=== PATIENT | female | born 1970 | race Caucasian/White ===

== ENCOUNTER → 2017-12-08 | Emergency (ER) | payer OTHER ==
[~2017-12-08] VITALS: Ht 160 cm; Wt 77.1 kg
[~2017-12-08] MED LIST: NAPR500T14; SYNTHROID150 MCG
== END | disposition home or self-care (01) ==
LOC: ER 15:15
DX: J22 Unspecified acute lower respiratory infection (principal)

== ENCOUNTER → 2018-05-24 | Outpatient (CLI) | payer OTHER | END | disposition home or self-care (01) | LOC: NUCLEAR 10:50 | DX: C73 Malignant neoplasm of thyroid gland (principal); E89.0 Postprocedural hypothyroidism | CPT/HCPCS: 78018; 78020; A9528 ==

== ENCOUNTER 2018-07-17 13:07 | Emergency (ER) | payer OTHER ==
[~2018-07-17] VITALS: Ht 157.5 cm; Wt 78.5 kg
[2018-07-17] MEDS ORDERED: SINGULAIR10 MG (13:41)
== END 2018-07-17 17:37 | disposition home or self-care (01) ==
LOC: ER 13:07
DX: E16.2 Hypoglycemia, unspecified (principal); N39.0 Urinary tract infection, site not specified

== ENCOUNTER 2020-06-04 06:31 | Emergency (ER) | payer OTHER ==
[~2020-06-04] VITALS: Ht 157.5 cm; Wt 81.6 kg
[~2020-06-04 06:31] MED LIST changes: +SINGULAIR10 MG
[2020-06-04] MEDS ORDERED: INTESTINEX680 M2 PO (15:51)
[2020-06-04] MEDS ORDERED: KETO10TA2 PO (15:51)
[2020-06-04] MEDS ORDERED: MACRODANTIN100 M1 PO (15:51)
[2020-06-04] MEDS ORDERED: PEPCID AC20 MG PO (15:51)
== END 2020-06-04 16:20 | disposition home or self-care (01) ==
LOC: ER 06:31
DX: N39.0 Urinary tract infection, site not specified (principal); K63.89 Other specified diseases of intestine; R10.31 Right lower quadrant pain; R10.32 Left lower quadrant pain
CPT/HCPCS: 74177; Q9965

== ENCOUNTER 2020-07-19 08:45 | Inpatient (IN) | payer OTHER ==
[~2020-07-19] VITALS: Ht 157.5 cm; Wt 83.9 kg
[~2020-07-19 08:45] MED LIST changes: +INTESTINEX680 M2 PO; +KETO10TA2 PO; +MACRODANTIN100 M1 PO; +PEPCID AC20 MG PO; -SYNTHROID150 MCG; +SYNTHROID150 MCG PO
[2020-07-26] MEDS ORDERED: SYNTHROID137 MCG PO (14:19)
[2020-07-26] MEDS ORDERED: SYNTHROID125 MCG PO (14:19)
[2020-07-26] MEDS ORDERED: NAPROXEN SODIU550 MG PO (14:19)
[2020-07-28] MEDS ORDERED: HYOSCYAMINE0.125 M1 SL ×2 (11:42)
[2020-07-28] MEDS ORDERED: ULTRACET PO ×2 (11:42)
[2020-07-28] MEDS ORDERED: INTESTINEX680 M1 PO ×2 (11:42)
[2020-07-29] MEDS ORDERED: SYNTHROID125 MCG PO (19:29)
[2020-07-30] MEDS ORDERED: ZOFRAN4 MG PO ×2 (07:55)
[2020-07-30] MEDS ORDERED: PROTONIX40 MG PO ×2 (07:55)
== END 2020-07-28 13:26 | disposition home or self-care (01) | DRG 743 ==
LOC: SURH 07-26 08:45 → O/R 07-26 08:57 → SURH 07-26 18:15
PROVIDERS: Obstetrics & Gynecology Gynecologic Oncology; ADMIT Surgery; ATTEND Surgery
PROC: 0UT94ZZ Resection of Uterus, Percutaneous Endoscopic Approach (ICD-10-PCS; principal; 2020-07-26 18:15)
PROC: 0DTJ4ZZ Resection of Appendix, Percutaneous Endoscopic Approach (ICD-10-PCS; 2020-07-26 18:15)
DX: N72 Inflammatory disease of cervix uteri (principal); D64.9 Anemia, unspecified; E03.9 Hypothyroidism, unspecified; K38.8 Other specified diseases of appendix

== ENCOUNTER → 2020-07-29 | Emergency (ER) | payer OTHER ==
[~2020-07-29] VITALS: Ht 157.5 cm; Wt 83.9 kg
[~2020-07-29] MED LIST changes: +HYOSCYAMINE0.125 M1 SL; +INTESTINEX680 M1 PO; +NAPROXEN SODIU550 MG PO; +PROTONIX40 MG PO; +SYNTHROID125 MCG PO; +SYNTHROID137 MCG PO; +ULTRACET PO; +ZOFRAN4 MG PO
== END | disposition home or self-care (01) ==
LOC: ER 18:23
DX: R10.2 Pelvic and perineal pain (principal); Z03.818 Encounter for observation for suspected exposure to other biological agents ruled out

== ENCOUNTER 2023-03-27 13:04 | Emergency (ER) | payer OTHER ==
[~2023-03-27] VITALS: Ht 157.5 cm; Wt 77.1 kg
[2023-03-27] MEDS ORDERED: METAXALONE800 MG PO (19:23)
[2023-03-27] MEDS ORDERED: CELEBREX200MG PO (19:23)
== END 2023-03-27 19:26 | disposition home or self-care (01) ==
LOC: ER 13:04
DX: M54.89 Other dorsalgia (principal); Z88.5 Allergy status to narcotic agent